=== PATIENT | male | born 1980 | race Caucasian/White ===

== ENCOUNTER 2017-01-16 07:05 | Day surgery (SDC) | payer OTHER ==
[~2017-01-16] VITALS: Ht 180.3 cm; Wt 108.0 kg
[~2017-01-16 07:05] MED LIST: ADVIL200 MG PO; FLEXERIL10 MG PO; NOHOMEMEDS; PEPCID20 MG PO; VALIUM5 MG PO
[2017-01-16 07:35] VITALS: BP 116/70
[2017-01-16] MEDS ORDERED: NORCO 5/3251 TABLET PO (09:59)
[2017-01-16 11:35] VITALS: BP 115/69
[2017-01-16 12:35] VITALS: BP 111/63
[2017-01-16 13:24] VITALS: BP 108/66
== END 2017-01-16 13:45 | disposition home or self-care (01) ==
LOC: SDC 07:05
PROC: 0YU50JZ Supplement Right Inguinal Region with Synthetic Substitute, Open Approach (ICD-10-PCS; principal; 2017-01-16)
DX: K40.90 Unilateral inguinal hernia, without obstruction or gangrene, not specified as recurrent (principal); E66.9 Obesity, unspecified; Z68.35 Body mass index [BMI] 35.0-35.9, adult; F17.210 Nicotine dependence, cigarettes, uncomplicated; Z83.42 Family history of familial hypercholesterolemia; Z82.49 Family history of ischemic heart disease and other diseases of the circulatory system; Z80.0 Family history of malignant neoplasm of digestive organs; Z83.3 Family history of diabetes mellitus
CPT/HCPCS: C1781; J0131; J0690; J1100; J1170; J2250; J2405; J2765; J3010